=== PATIENT | male | born 1980 | race Caucasian/White ===

== ENCOUNTER → 2017-10-11 | Outpatient (CLI) | payer BC ==
[~2017-10-11] MED LIST: ATIVAN1 MG PO; CLARITIN10 MG PO; DELTASONE10 MG PO; FLONASE ALLERG9.9 ML NAS; NKHM; PREDNISONE10 MG PO; ZOFRAN4 MG PO
[2017-10-11 08:23] LABS: BASO # 0.1 10*3/uL (0.0-0.1); BASO % 1.3 % (0.0-1.0); EOS # 0.2 10*3/uL (0.0-0.4); EOS % 2.8 % (1.0-4.0); HEMATOCRIT 43.8 % (42.0-52.0); HEMOGLOBIN 15.3 g/dl (14.0-18.0); LYMPH # 2.3 10*3/uL (1.3-4.4); LYMPH % 41.8 % (27.0-41.0); MEAN CELL VOLUME 93.6 fl (80.0-94.0); MEAN CORPUSCULAR HGB 32.7 pg (27.0-31.0); MEAN CORPUSCULAR HGB CONC 34.9 g/dl (33.0-37.0); MEAN PLATELET VOLUME 11.3 fl (9.6-12.3); MONO # 0.5 10*3/uL (0.1-1.0); MONO % 8.6 % (3.0-9.0); NEUT # 2.4 10*3/uL (2.3-7.9); NEUT % 45.1 % (47.0-73.0); PLATELET COUNT AUTOMATED 188 10*3/uL (130-400); RED BLOOD COUNT 4.68 10*6/uL (4.50-5.90); RED CELL DISTRI WIDTH 12.1 % (0-14.5); WHITE BLOOD COUNT 5.4 10*3/uL (4.8-10.8)
[2017-10-11 08:48] LABS: ALBUMIN 3.9 gm/dl (3.1-4.5); ALKALINE PHOSPHATASE 67 U/L (45-117); BILIRUBIN, DIRECT 0.1 mg/dL (0.0-0.2); BUN 6 mg/dl (7-24); CHOLESTEROL 160 mg/dL (<200); CREATININE 1.17 mg/dL (0.70-1.30); SGOT/AST 26 IU/L (3-35); SGPT/ALT 23 U/L (12-78); TOTAL PROTEIN 7.9 gm/dL (6.4-8.2)
== END | disposition home or self-care (01) ==
LOC: LAB 07:42
PROVIDERS: Internal Medicine
DX: E55.9 Vitamin D deficiency, unspecified (principal); R53.83 Other fatigue; R53.81 Other malaise; Z79.1 Long term (current) use of non-steroidal anti-inflammatories (NSAID)

== ENCOUNTER → 2018-02-15 | Outpatient (CLI) | payer BC ==
[2018-02-15 12:34] LABS: FREE T4 1.11 ng/dl (0.76-1.46)
[2018-02-15 12:40] LABS: THYROID STIM HORMONE (HS) 1.1 uIU/ml (0.358-4.75)
== END | disposition home or self-care (01) ==
LOC: LAB 11:14
PROVIDERS: Internal Medicine
DX: E55.9 Vitamin D deficiency, unspecified (principal); L85.3 Xerosis cutis; R68.89 Other general symptoms and signs

== ENCOUNTER → 2022-05-17 | Outpatient (CLI) | payer OTHER | END | disposition home or self-care (01) | LOC: CARD 11:00 | PROVIDERS: ATTEND Nurse Practitioner Primary Care | DX: I47.2 Ventricular tachycardia (principal); I48.0 Paroxysmal atrial fibrillation ==

== ENCOUNTER 2023-06-05 13:03 | Emergency (ER) | payer OTHER ==
[~2023-06-05] VITALS: Ht 187.9 cm; Wt 77.6 kg
== END 2023-06-05 16:02 | disposition home or self-care (01) ==
LOC: ED 13:03
DX: R55 Syncope and collapse (principal); R11.10 Vomiting, unspecified; Z88.0 Allergy status to penicillin; Z98.890 Other specified postprocedural states